=== PATIENT | male | born 1955 | race Caucasian/White ===

== ENCOUNTER 2020-07-29 08:15 | Outpatient (CLI) | payer MEDICARE, OTHER | END 2020-07-29 08:16 | disposition home or self-care (01) | LOC: CSHULT 08:15 | PROVIDERS: ATTEND Urology | DX: N20.0 Calculus of kidney (principal); Q63.1 Lobulated, fused and horseshoe kidney; N28.89 Other specified disorders of kidney and ureter | CPT/HCPCS: 76770 ==

== ENCOUNTER 2022-03-13 10:49 | Emergency (ER) | payer MEDICARE, OTHER ==
[2022-03-13] MEDS ORDERED: Meclizine HCl 25 MG TAB ONE (12:58)
[2022-03-13 13:09] LABS: #Basophils 0.1 10x3/uL (0.0-0.2); #Monocytes 0.7 10x3/uL (0.0-1.1); #Neutrophils 5.8 10x3/uL (1.5-8.4); %Basophils 0.7 % (0.0-2.0); %Eosinophils 0.2 % (0.0-6.0); %Lymphocytes 24.9 % (18.0-47.0); %Monocytes 8.2 % (0.0-10.0); %Neutrophils 65.7 % (40.0-75.0); Hemoglobin 16.5 g/dL (13.5-17.5); Mean Corpuscular HGB CONC 34.9 g/dL (32.0-36.0); Mean Corpuscular Volume 88.7 fl (81.2-95.1); Mean Platelet Volume 10.3 fl (7.4-10.4); Platelet Count 230 10x3/uL (150-450); RBC Distribution Width 13.5 % (11.5-14.5); Red Blood Cell (RBC) Count 5.33 10x6/uL (4.32-5.72); White Blood Cell (WBC) Count 8.9 10x3/uL (3.5-10.5)
[2022-03-13 13:23] LABS: ALT (SGPT) 38 U/L (8-55); AST (SGOT) 28 U/L (5-34); Albumin 4.4 g/dL (3.4-4.8); Alkaline Phosphatase 62 U/L (40-110); Anion Gap 17 mmol/L (10-20); BUN (Urea Nitrogen) 13 mg/dL (8.4-25.7); Bilirubin, Total 0.7 mg/dL (0.2-1.2); Calc. Creatinine Clearance 0 mL/min (70-130); Carbon Dioxide 25 mmol/L (23-31); Chloride 106 mmol/L (98-107); Estimated GFR 83; Globulin 3.4 g/dL (2.4-3.5); Glucose 116 mg/dL (80-115); Potassium 4.9 mmol/L (3.5-5.1); Protein, Total 7.8 g/dL (5.8-8.1); Sodium 143 mmol/L (136-145)
== END 2022-03-13 14:50 | disposition home or self-care (01) ==
LOC: CSHERS 10:49
DX: R42 Dizziness and giddiness (principal)
CPT/HCPCS: 36415; 70450; 71045; 80053; 84484; 85025; 93005